=== PATIENT | female | born 1980 | race Hispanic/Latino ===

== ENCOUNTER → 2019-10-30 | Day surgery (SDC) | payer OTHER ==
[~2019-10-30] MED LIST: ACETAMINOPHEN/CODEINE 300MG - 30MG TAB ONE; BUPIVACAINE HCL 0.5% INJ 30 ML VIAL INJ ONE; CEFAZOLIN SOD 1 GM/NS 50ML 50 ML IV ONE; DEXAMETHASONE SOD PHOS INJ 4 MG/ML VIAL ONE; FENTANYL CITRATE/PF 100MCG/2 ML INJ ONE; KETOROLAC TROMETHAMINE 30 MG/ML VIAL ONE; LIDOCAINE HCL 2% LOCAL INJ 5 ML SDV VIAL INJ ONE; MEPERIDINE HCL INJ 25 MG/ML VIAL ONE; MIDAZOLAM HCL 2 MG/2 ML VIAL ONE; ONDANSETRON HCL INJ 2MG/ML 2ML 2 MG/ML VIAL ONE; PROPOFOL IV EMULSION 10 MG/ML 20 ML VIAL ONE; SEVOFLURANE INHAL SOLN 250 ML PEN BTL ONE; VITAMIN B122500 MCG PO; VITAMIN C100 MG PO; VITAMIN D400 UNIT PO; VITAMIN E400 UNIT PO
[2019-10-30 08:35] VITALS: BP 107/66
--- NOTE | 2019-10-30 13:18 | Operative Report ---
DATE OF PROCEDURE: 10/30/2019 SURGEON: Brenda King DPM PREOPERATIVE DIAGNOSES: 1. 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 2. Left neuroma, 3rd interspace. 3. Left heel spur. POSTOPERATIVE DIAGNOSES: 1. 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 2. Left neuroma, 3rd interspace. 3. Left heel spur. PLANNED PROCEDURES: 1. Left excision of 2nd interspace neuroma. 2. Left excision of 3rd interspace neuroma. 3. Left excision of heel spur. SURGEON: Dr. Praveen DPM. SHEET METAL WELDER: Brenda King DPM. ANESTHESIA: General with a postoperative block consisting of 15 mL of 0.5% Marcaine plain mixed with 1 mL of dexamethasone phosphate. HEMOSTASIS: Pneumatic thigh tourniquet set at 350 mmHg for a total time approximately 30 minutes. MATERIALS: 3-0 Vicryl, 4-0 Prolene, and one TLS drain. ESTIMATED BLOOD LOSS: Less than 10 mL. PATHOLOGY: None. PROCEDURE NOTE: The patient was seen in the preoperative waiting room, where the correct procedure and site was identified. The patient was brought into the operating room and placed on the operative table in supine position. General anesthesia was initiated. At this time, a well-padded pneumatic tourniquet was placed about the patient's left thigh. The left foot, ankle, and leg was then scrubbed, prepped, and draped in the usual aseptic manner. The left foot, ankle, and leg was exsanguinated with an Esmarch bandage and a pneumatic thigh tourniquet was inflated to 350 mmHg for a total time of approximately 30 minutes. Attention was directed to the dorsal aspect of the patient's left 3rd interspace, where a 4 cm linear incision was made. The incision was carried through the subcutaneous tissue them from deep or underling structures. All vital and neurovascular structures were identified, retracted medially and laterally, and all bleeders were cauterized or ligated as deemed necessary. Further dissection was carried down to the level of the deep transverse metatarsal ligament, where through the same incision of the deep transverse metatarsal ligament was performed to allow for good visualization of the interspace. Applying plantar pressure, a large inflamed tortuous interdigital neuroma was noted. It was identified and grasped with a hemostat. The dissection was carried distally to the level of the proper digital branches and proximally to the level of the intermetatarsal nerve. It was cut distally, pulled distally, and again cut proximal to allow for retraction of the proximal aspect of the nerve. This was excised and passed off to the back table. Next, the same exact procedure was performed to the 2nd interspace. No additions, modifications, or subtractions were made and the same excellent result was achieved. Both wounds were flushed with copious amounts of sterile saline. Capsule and deep tissue were reapproximated with 3-0 Vicryl, subcutaneous tissue with 3-0 Vicryl, and the skin was closed using a running interlocking stitch with 4-0 Prolene. Attention was directed to the medial aspect of the patient's left heel, where a 3 cm linear incision was made directly over the plantar aspect of the heel spur over the attachment of the plantar fascia. The dissection was carried down to the level of plantar fascia, which was easily identified utilizing Metzenbaum scissors. The plantar fascia was cut approximately one-third to one-half level over the heel spur. Next, utilizing an osteotome and mallet, a rongeur and a rasp, the heel spur was excised and passed off to the back table and confirmed via intraoperative fluoroscopy. The bone was smoothed to anatomic alignment utilizing a rasp. The wound was then copiously irrigated with sterile saline. Deep tissue was reapproximated with 3-0 Vicryl. A TLS drain was placed at this point per manufacture protocol and noted to be functioning appropriately and the incision site was reapproximated utilizing a simple interlocking suture with 4-0 Prolene. All incision sites were dressed with Adaptic, 4x4s, Kerlix, Harpal wrap, and a postop shoe. The patient tolerated the procedure and anesthesia well. The patient was transferred to the postop recovery unit with vital signs stable and vascular status intact. The patient was monitored there for a short period of time before being sent home with the following written and oral instructions: 1. Keep the dressing clean, dry, and intact. 2. The patient is to remain nonweightbearing in a postop shoe to avoid any ambulation until being seen in the office. 3. The patient was given the office number and instructed to contact us if any problems arise. ALLY Mcneil /[id number]
--- OUTSIDE RECORDS SUMMARY | 2019-10-30 19:32 | XMS REPORT ---
Author Author [facility] Address Unknown Phone Unavailable Care Team Providers [employer] Club Attendant Name Role Phone Unavailable Unavailable Payers Payer Name Policy Type Policy Number Effective Date Expiration Date Problems This patient has no known problems. Allergies, Adverse Reactions, Alerts Allergy Name Allergy Type Status Severity Reaction(s) Onset Date Inactive Date Treating Clinician Comments No Known Allergies DA Active U 2011-11-01 00:00:00 Medications This patient has no known medications. Results Test Description Test Time Test Comments Text Results Atomic Results Result Comments XR IVP 2018-09-06 11:55:57 Patient: LIZZIE JUARES Date/Time09/06/2018 11:23 CSTReason for Exampost op s/p LAVH, revision of pedicle needed;Other (please specify)ReportIN TRAVENOUS PYELOGRAMCLINICAL INFORMATION: Other (please specify);post op s/p LAVH, revision of pedicle neededCOMPARISONS: None available.FINDINGS:A technology professional radiograph of the abdomen was obtained. Then 100 mL of Omnipaque 300 intravenous contrast was administered. Post injection over head radiographs were submitted at 5 minutes, 10 minutes, 15 minutes, 20 minutes, and 25 minutes. A postvoid image was also submitted.The technology professional radiograph shows surgical clips in the right upper quadrant. Otherwise no radiopaque foreign body is identified.Following the uneventful administration of intravenous contrast, the bilateral nephrograms and pyelograms are prompt and symmetric. The calyces are sharp. No filling defect is identified in the normal-sized ureters. No contrast extravasation is identified.The post void image again shows no evidence of a leak. A mild bladder residual is noted. A Garcia catheter is in place.IMPRESSION:No evidence of hydronephrosis or ureteral injury.Location: R16 Final Dictated by: MD Muniz Adam FDictated DT/TM: 09/06/2018 11:45 amSigned by: MD Muniz Adam FSigned (Electronic Signature): 09/06/2018 11:55 am XR Chest 1 View Frontal 2018-08-31 13:33:56 Patient: LIZZIE JUARES Date/Time08/31/2018 12:46 CSTReason for ExamPRE OPReportLOCATION: [id number] VIEWINDICATION: TAVH. PreopCOMPARISON: None availableFINDINGS: The lungs are clear and well inflated. No pleural effusion or pneumothorax. The cardiomediastinal silhouette is unremarkable. There are hypertrophic changes at the first costosternal junctions. The bony thorax is otherwise unremarkable.IMPRESSION:No acute cardiopulmonary findings. Final Dictated by: MD Payton Eniola FDictated DT/TM: 08/31/2018 1:31 pmSigned by: MD Payton Eniola FSigned (Electronic Signature): 08/31/2018 1:33 pm
== END | disposition home or self-care (01) ==
LOC: OR 05:19
PROVIDERS: ATTEND Podiatrist Foot & Ankle Surgery
DX: M77.32 Calcaneal spur, left foot (principal); G57.62 Lesion of plantar nerve, left lower limb
CPT/HCPCS: 28080 ×2; 28119; J0690; J1100; J1885; J2001; J2175; J2250; J2405; J2704; J3010